=== PATIENT | female | born 1935 | race Caucasian/White ===

== ENCOUNTER 2016-06-10 08:55 | Day surgery (SDC) | payer OTHER ==
[2016-06-09 12:01] VITALS: BMI 31.8
--- NOTE | 2016-06-09 16:43 | HP ---
- Patient Scheduled date of Surgery: 06/10/16 Scheduled Surgical Procedure: Phacoemulsification and cataract extraction with PCIOL Affected Eye: Left Chief Complaint (Indication for surgery): Decreased vision affecting ADLs - Ocular History Other Eye History: Other (allergic conjuntivitis) Eye Medications: pataday, vigamox, prolensa Previous Eye Surgery: s/p ce/pciol Od sulcus (trypan, epi) - Medical History Illnesses: Hypertension, Hypercholesterolemia (neuropathy), Diabetes Current Medications: Ambulatory Orders Metformin HCl [Glucophage -] 850 mg PO DAILY@0700 12/04/11 Simvastatin 20 mg PO HS 12/04/11 Diclofenac Sodium [Diclofenac Sodium ER] 100 mg PO DAILY 03/11/16 Famotidine [Pepcid] 40 mg PO DAILY 03/11/16 Furosemide [Lasix -] 40 mg PO DAILY 03/11/16 Furosemide [Lasix -] 40 mg PO DAILY 03/11/16 Gabapentin [Neurontin] 600 mg PO DAILY 03/11/16 Omeprazole 40 mg PO DAILY 03/11/16 Allergies/Adverse Reactions: Allergies Allergy/AdvReac Type Severity Reaction Status Date / Time No Known Drug Allergies Allergy Verified 01/21/16 16:30 Ocular Examination - Best Corrected Visual Acuity Distance: Right eye: 20/25 Distance: Left eye: 20/40 - External/Slit Lamp Examination Abnormalities: 2+ papilla, pinguecum, pigment ardtl's triangle - Intraocular Pressure Intraocular Pressure - Right eye: 16 Intraocular Pressure-Left eye: 16 - Lens Lens: 2+ NS, 2+ cortical, +1 psc - Vitreous/Retina Vitreous/Retina: c:d 0.2 m/v wnl p: drusen - Special Examination M - Right eye: pl-1.50 x 100 M - Left eye: +3.25 -0.75 x 090 K - Right eye: 44.75/45/50 x 030 K - Left eye: 44.75/45.50 x 165 AL - Right eye: 21.68 AL - Left eye: 21.81 IOL bag: +23.5 d hoya 251 IOL sulcus: +22.5 d hoya 231 IOL AC: +19.5 d mta 4uo - Impression Impression: Cataract Left Eye - Plan Plan: Phacoemulsification and cataract extraction - IOL Left eye (trypan blue) Post-hospital care will be provided in office on: 06/11/16
--- NOTE | 2016-06-10 07:25 | HP ---
History & Physical Update - History History: No Change - Physical Physical: No Change - Assessment Assessment: No Change - Plan Plan: No Change
[~2016-06-10 08:55] MED LIST: ACETAMINOPHEN 325 MG TABLET (FP) PO PRN; CIPROFLOXACIN HCL 0.3% OPHTH 2.5ML BOTTLE OP SCH; TOBRAMYCIN/DEXAMETHASONE OPHTH. OINTMENT 1 TUBE TP ONE
[2016-06-10 09:31] LABS: BASOPHIL 0.8 % (0-2.0); EOSINOPHIL 2.3 % (0-4.5); MCH 30.8 pg (25.7-33.7); MCHC 33.5 g/dl (32.0-36.0); MEAN CELL VOLUME 92.1 fl (80-96); MEAN PLT VOLUME 8.4 fl (7.5-11.1); NEUTROPHILS 61.1 % (42.8-82.8); PLATELET COUNT 204 K/MM3 (134-434); RDW 12.7 % (11.6-15.6)
[2016-06-10] MEDS ORDERED: DICLOFENAC SODIUM 0.1% OPHTHALMIC 2.5ML BOTTLE ONE (09:38)
[2016-06-10] MEDS ORDERED: PHENYLEPHRINE 2.5% OPHTH SOLN 15 ML BOTTLE ONE (09:38)
[2016-06-10] MEDS ORDERED: TROPICAMIDE 1% OPHTH SOLN 15 ML BOTTLE ONE (09:38)
[2016-06-10] MEDS: MOXIFLOXACIN HCL 0.5% OPHTHALMIC 3 ML BOTTLE ONE ×2 (09:50→10:00)
[2016-06-10] MEDS: PHENYLEPHRINE 2.5% OPHTH SOLN 15 ML BOTTLE OP SCH ×2 (09:50→10:00)
[2016-06-10] MEDS: DICLOFENAC SODIUM 0.1% OPHTHALMIC 2.5ML BOTTLE OP SCH ×2 (09:50→10:00)
[2016-06-10] MEDS: TROPICAMIDE 1% OPHTH SOLN 15 ML BOTTLE OP SCH ×2 (09:50→10:00)
[2016-06-10 10:01] VITALS: TEMP 97.7
[2016-06-10 10:04] LABS: ALBUMIN 3.9 g/dl (3.4-5.0); BILIRUBIN,TOTAL 0.4 mg/dL (0.2-1.0); CALCIUM 9.6 mg/dL (8.5-10.1); CREATININE 1.4 mg/dL (0.55-1.02); TOT PROT 7.5 g/dl (6.4-8.2)
[2016-06-10] MEDS ORDERED: PROPOFOL 20 ML ONE (10:26)
[2016-06-10] MEDS ORDERED: LIDOCAINE HCL/PF 2% SDV 5ML VIAL ONE ×2 (10:26→10:51)
[2016-06-10] MEDS ORDERED: MIDAZOLAM HCL 2 MG/2 ML SINGLE DOSE VIAL ONE (10:26)
[2016-06-10] MEDS ORDERED: LIDOCAINE HCL 2% JELLY (5 ML/TUBE) TP ONE (10:35)
[2016-06-10] MEDS ORDERED: TRYPAN BLUE 0.5 ML DISP.SYRIN ONE ×2 (10:51→10:52)
[2016-06-10] MEDS ORDERED: BUPIVACAINE HCL/PF 0.75% 10 ML VIAL ONE (10:52)
[2016-06-10] MEDS ORDERED: LIDOCAINE HCL/PF 2% SDV 5ML VIAL PNB ONE ×2 (11:05→11:12)
[2016-06-10] MEDS ORDERED: BUPIVACAINE HCL/PF 0.75% 10 ML VIAL RB ONE ×2 (11:05→11:12)
[2016-06-10] MEDS ORDERED: BUPIVACAINE HCL/PF 0.75% 10 ML VIAL PNB ONE (11:06)
[2016-06-10] MEDS ORDERED: LIDOCAINE HCL/PF 2% SDV 5ML VIAL INF ONE (11:06)
[2016-06-10] MEDS ORDERED: TRYPAN BLUE 0.5 ML DISP.SYRIN IO ONE (11:13)
[2016-06-10] MEDS ORDERED: EPINEPHrine/PF 1 MG/1 ML (1:1,000) AMPULE SQ ONE (11:18)
[2016-06-10] MEDS ORDERED: TOBRAMYCIN/DEXAMETHASONE OPHTH. OINTMENT 1 TUBE TP ONE (11:43)
--- NOTE | 2016-06-10 11:49 | OP ---
Ophthalmology Operative Note Pre-Operative Diagnosis: Cataract Affected Eye: Left Operation: Phacoemulsification and cataract extraction with PCIOL Findings: cataract left eye Post-Operative Diagnosis: Same as Pre-op Nail Assembly Machine Operator: Cristiana Anesthesiologist: Kameron Silvestre Anesthesia: Local, Retrobulbar Specimens Removed: none Estimated blood loss: none Operative Report Dictated: No
[2016-06-10 13:18] VITALS: BP 100/60; PULSE 64
--- NOTE | 2016-06-10 14:22 | OP ---
DATE OF OPERATION: 06/10/2016 PREOPERATIVE DIAGNOSIS: Cataract, left eye. POSTOPERATIVE DIAGNOSIS: Cataract, left eye. PROCEDURE: Phacoemulsification and cataract extraction with insertion of posterior chamber intraocular lens, left eye. SURGEON: Holli Romero MD ORDER ENTRY CLERK: None. ANESTHESIA: Retrobulbar block. ANESTHESIOLOGIST: Kameron Silvestre MD OPERATIVE PROCEDURE: Following satisfactory intravenous sedation, the patient received local anesthesia using a 50/50 mixture of lidocaine 2% and Marcaine 0.75%. A van Lint lid block was delivered to the left eye using 4 mL of the mixture in a retrobulbar injection using 4 mL of the mixture. The patient was then prepped and draped in the usual sterile fashion so as to expose only the left eye. Ophthalmic Betadine was instilled into the inferior fornix and lashes were taped out of the surgical field. An eyelid speculum was placed into the left eye. A paracentesis was made in inferior clear cornea at the limbus. An air bubble was then injected into the anterior chamber and trypan blue was dripped on the anterior capsular edge. Viscoelastic material was instilled in the anterior chamber via the paracentesis to remove the trypan blue. A 2.4-mm keratome was then used to create the main incision in temporal clear cornea at the limbus. A continuous curvilinear capsulorrhexis was performed using a cystotome and Utrata forceps. Hydrodissection of the lens cortex was performed using BSS on a cannula until the nucleus was noted to be freely rotating. The phacoemulsification tip was inserted via the main wound and used to sculpt 2 perpendicular grooves in the lens nucleus. Viscoat was injected into the groove, then the nucleus cracker was used to crack the lens into 4 quadrants. Each quadrant was lifted out of the capsule into the iris plane and individually phacoemulsified. The remaining cortical material was then aspirated using the irrigation and aspiration port. The capsular bag was inflated with ProVisc and a preloaded HOYA lens model 251 power +23.5 diopters was injected into the capsular bag and centered using a Sinskey hook. The residual viscoelastic material was removed from the anterior chamber using irrigation and aspiration. The wound edges were hydrated using BSS. The wound was tested for leakage. It was found to be watertight. Therefore TobraDex ointment was placed in the eye and the speculum was removed from the eye, and sterile dressing and shield were placed over the eye and the patient was transferred to the recovery room in stable condition, told to follow up in 1 day. HOLLI ROMERO M.D. [id number]
--- NOTE | 2016-06-10 15:35 | EKG ---
Test Reason : Blood Pressure : / mmHG Vent. Rate : 068 BPM Atrial Rate : 068 BPM P-R Int : 146 ms QRS Dur : 086 ms QT Int : 398 ms P-R-T Axes : 049 -17 044 degrees QTc Int : 423 ms NORMAL SINUS RHYTHM MODERATE VOLTAGE CRITERIA FOR LVH, MAY BE NORMAL VARIANT BORDERLINE ECG NO PREVIOUS ECGS AVAILABLE Confirmed by RENEE PETERS, SEEMA ([id number]) on 06/10/2016 3:35:14 PM Referred By: Holli Nava Confirmed By:SEEMA DURAN MD
== END 2016-06-10 13:10 | disposition home or self-care (01) ==
LOC: JASU-SURG 08:55
PROVIDERS: ATTEND Ophthalmology
PROC: 08RK3JZ Replacement of Left Lens with Synthetic Substitute, Percutaneous Approach (ICD-10-PCS; principal; 2016-06-10 10:30)
DX: H26.9 Unspecified cataract (principal)
CPT/HCPCS: 36415; 80053; 85025; 93005; 93010